=== PATIENT | female | born 1955 | race Two or more races ===

== ENCOUNTER 2023-09-25 19:49 | Inpatient (IN) | payer MEDICARE, BC ==
[~2023-09-25] VITALS: Ht 157.5 cm; Wt 45.4 kg
[2023-09-25 21:41] LABS: BASOPHILS % (AUTO) 0.6 % (0.0-2.0); EOSINOPHILS # (AUTO) 0.1 K/uL (0.0-0.7); EOSINOPHILS % (AUTO) 1.4 % (0.0-6.0); HEMATOCRIT 42 % (33-45); HEMOGLOBIN 13.9 g/dL (11.5-14.8); LYMPHOCYTES # (AUTO) 1.5 K/uL (0.8-4.8); LYMPHOCYTES % (AUTO) 17.6 % (20.0-44.0); MEAN CORPUSCULAR HEMOGLOBIN 28 PG (26.0-33.0); MEAN CORPUSCULAR HGB CONC 33 g/dl (31.0-36.0); MEAN CORPUSCULAR VOLUME 85 fL (82-100); MONOCYTES # (AUTO) 0.7 K/uL (0.1-1.30); MONOCYTES % (AUTO) 8.9 % (2.0-12.0); NEUTROPHILS % (AUTO) 71.5 % (43.0-81.0); PLATELET COUNT (AUTO) 227 K/uL (150-450); RED BLOOD CELL COUNT(AUTO) 4.93 MIL/uL (4.0-5.2); RED CELL DISTRIBUTION WIDTH 13.1 % (11.5-15.0); WHITE BLOOD COUNT (AUTO) 8.4 K/uL (4.3-11.0)
[2023-09-25 21:48] LABS: APPEARANCE,URINE CLEAR (CLEAR); BILIRUBIN,URINE NEGATIVE (NEGATIVE); BLOOD, URINE TRACE-INTA Ery/uL (NEGATIVE); COLOR,URINE YELLOW (YELLOW); KETONES,URINE 1+ mg/dL (NEGATIVE); LEUKOCYTE ESTERASE ,URINE NEGATIVE (NEGATIVE); NITRITE, URINE NEGATIVE (NEGATIVE); PROTEIN,URINE TRACE mg/dl (NEGATIVE); UGLUCOSE NEGATIVE (NEGATIVE)
[2023-09-25 21:56] LABS: CALCIUM, SERUM 9.3 mg/dL (8.5-10.1); CARBON DIOXIDE 31 mmol/L (21-32); CHLORIDE 101 mmol/L (98-107); CREATININE 0.7 mg/dL (0.6-1.3); GLUCOSE 109 mg/dL (74-106); POTASSIUM 3.1 mmol/L (3.5-5.1); SODIUM SERUM 139 mmol/L (136-145); UREA NITROGEN, BLOOD 8 mg/dL (7-18)
[2023-09-25 22:03] LABS: ALANINE AMINOTRANSFERASE 37 U/L (12-78); ALBUMIN 3.4 g/dL (3.4-5.0); ALCOHOL, BLOOD < 3 mg/dL (0-10); ALKALINE PHOSPHATASE 93 U/L (46-116); ASPARTATE AMINOTRANSFERASE 49 U/L (15-37); BILIRUBIN,DIRECT 0.2 mg/dL (0.0-0.2); TOTAL PROTEIN, SERUM 6.9 g/dL (6.4-8.2)
[2023-09-25 22:04] LABS: ACETAMINOPHEN 0 ug/ml (10-30); SALICYLATE < 0.2 mg/dL (2.8-20.0)
[2023-09-25 22:05] LABS: ADD URINE CULTURE NO; BACTERIA,URINE None seen /HPF (None Seen); MUCUS,URINE Few /LPF (None Seen); SQUAMOUS EPITHELIAL CELL,UR None Seen /HPF (None Seen); WBC,URINE NONE SEEN /HPF (0-3)
[2023-09-26 00:31] VITALS: O2SAT 99
[2023-09-26] MEDS ORDERED: LORAZEPAM INJ 2 MG/ML VIAL ONE (02:12)
[2023-09-26] MEDS ORDERED: LORAZEPAM INJ 2 MG/ML VIAL IV ONE (02:30)
[2023-09-26] MEDS ORDERED: ATOR20TA PO (03:54)
[2023-09-26] MEDS ORDERED: APIX5TAB PO (03:54)
[2023-09-26] MEDS ORDERED: LORA-259 PO (03:54)
[2023-09-26] MEDS ORDERED: METO25TA6 PO (03:54)
[2023-09-26] MEDS ORDERED: AMLO-212 PO (03:54)
[2023-09-26] MEDS ORDERED: BLOOD SUGAR DIAGNOSTIC 1 EACH STRIP IN ONE (04:30)
[2023-09-26] MEDS ORDERED: MAG HYDROX/AL HYDROX/SIMETH 30 ML UDC PO PRN (04:30)
[2023-09-26] MEDS ORDERED: ACETAMINOPHEN 325 MG TABLET PO PRN (04:30)
[2023-09-26] MEDS ORDERED: MAGNESIUM HYDROXIDE 30 ML UDC PO PRN (04:30)
[2023-09-26 05:48] VITALS: BP 132/69; TEMP 98.6
[2023-09-26 07:32] LABS: CHOLESTEROL 146 mg/dL (<200); HDL CHOLESTEROL 54 mg/dL (40-60); LDL 67 mg/dL (0-99); TRIGLYCERIDES 102 mg/dL (30-150)
[2023-09-26 08:00] VITALS: BP 118/74; TEMP 98.7; O2SAT 96
[2023-09-26] MEDS ORDERED: POTASSIUM CHLORIDE 20 MEQ TAB.PRT.SR PO ONE (14:30)
[2023-09-26] MEDS: clonazePAM 0.5 MG TABLET PO PRN (15:52)
[2023-09-26 16:00] VITALS: BP 144/96; TEMP 98.7; O2SAT 96
[2023-09-26] MEDS ORDERED: hydrOXYzine 10 MG TABLET PO PRN (16:00)
[2023-09-26] MEDS: risperiDONE 0.25 MG TABLET PO SCH (16:54)
[2023-09-26] MEDS: METOPROLOL TARTRATE 25 MG TABLET PO SCH (16:54)
[2023-09-26] MEDS: APIXABAN 5 MG TABLET PO SCH (16:55)
[2023-09-26 20:33] VITALS: BP 110/55; TEMP 98.2; O2SAT 98
[2023-09-26] MEDS: ATORVASTATIN 10 MG TABLET PO SCH (21:21)
[2023-09-26] MEDS: TEMAZEPAM 7.5 MG CAPSULE PO PRN (21:23)
[2023-09-27] MEDS: clonazePAM 0.5 MG TABLET PO PRN (02:59)
[2023-09-27 08:00] VITALS: BP 136/90; TEMP 97.4; O2SAT 97
[2023-09-27] MEDS: AMLODIPINE BESYLATE 5 MG TABLET PO SCH (08:46)
[2023-09-27] MEDS: risperiDONE 0.25 MG TABLET PO SCH ×2 (08:46→16:46)
[2023-09-27] MEDS: METOPROLOL TARTRATE 25 MG TABLET PO SCH ×2 (08:47→16:46)
[2023-09-27] MEDS: APIXABAN 5 MG TABLET PO SCH ×2 (08:49→16:47)
[2023-09-27] MEDS: ENSURE ENLIVE 237 ML LIQUID (VANILLA) PO SCH ×2 (12:04→16:46)
[2023-09-27 16:00] VITALS: BP 136/66; TEMP 98.4; O2SAT 99
[2023-09-27 20:00] VITALS: BP 114/83; TEMP 98.1; O2SAT 97
[2023-09-27] MEDS: TEMAZEPAM 7.5 MG CAPSULE PO PRN (21:10)
[2023-09-27] MEDS: ATORVASTATIN 10 MG TABLET PO SCH (22:08)
[2023-09-28] MEDS: clonazePAM 0.5 MG TABLET PO PRN (05:47)
[2023-09-28 08:00] VITALS: BP 129/96; TEMP 97.7; O2SAT 98
[2023-09-28] MEDS: Z GUARD REMEDY 4 OZ OINT TP SCH ×2 (09:00→18:12)
[2023-09-28] MEDS: METOPROLOL TARTRATE 25 MG TABLET PO SCH ×2 (09:16→17:52)
[2023-09-28] MEDS: risperiDONE 0.25 MG TABLET PO SCH ×2 (09:16→17:46)
[2023-09-28] MEDS: APIXABAN 5 MG TABLET PO SCH ×2 (09:16→17:59)
[2023-09-28] MEDS: AMLODIPINE BESYLATE 5 MG TABLET PO SCH (09:17)
[2023-09-28] MEDS: ENSURE ENLIVE 237 ML LIQUID (VANILLA) PO SCH ×3 (09:18→17:46)
[2023-09-28 16:00] VITALS: BP 129/81; TEMP 97.8; O2SAT 95
[2023-09-28 20:17] VITALS: BP 117/75; TEMP 98.1; O2SAT 98
[2023-09-28] MEDS: ATORVASTATIN 10 MG TABLET PO SCH (21:28)
[2023-09-28] MEDS: TEMAZEPAM 7.5 MG CAPSULE PO PRN (23:40)
[2023-09-29 08:00] VITALS: BP 120/93; TEMP 98.6; O2SAT 96
[2023-09-29] MEDS: ENSURE ENLIVE 237 ML LIQUID (VANILLA) PO SCH ×3 (08:00→17:00)
[2023-09-29] MEDS: risperiDONE 0.25 MG TABLET PO SCH ×2 (09:15→16:22)
[2023-09-29] MEDS: METOPROLOL TARTRATE 25 MG TABLET PO SCH ×2 (09:15→16:23)
[2023-09-29] MEDS: AMLODIPINE BESYLATE 5 MG TABLET PO SCH (09:16)
[2023-09-29] MEDS: APIXABAN 5 MG TABLET PO SCH ×2 (09:20→16:27)
[2023-09-29] MEDS: Z GUARD REMEDY 4 OZ OINT TP SCH ×2 (09:21→17:13)
[2023-09-29 16:00] VITALS: BP 128/91; TEMP 98.6; O2SAT 98
[2023-09-29] MEDS: ATORVASTATIN 10 MG TABLET PO SCH (21:37)
[2023-09-30] MEDS ORDERED: Z GUARD REMEDY 4 OZ OINT TP PRN
[2023-09-30] MEDS: TEMAZEPAM 7.5 MG CAPSULE PO PRN (00:23)
[2023-09-30 08:00] VITALS: BP 133/97; TEMP 97.6; O2SAT 94
[2023-09-30] MEDS: risperiDONE 0.25 MG TABLET PO SCH ×2 (08:13→16:45)
[2023-09-30] MEDS: ENSURE ENLIVE 237 ML LIQUID (VANILLA) PO SCH ×3 (08:13→16:46)
[2023-09-30] MEDS: METOPROLOL TARTRATE 25 MG TABLET PO SCH ×2 (08:14→16:46)
[2023-09-30] MEDS: APIXABAN 5 MG TABLET PO SCH ×2 (08:15→16:46)
[2023-09-30] MEDS: AMLODIPINE BESYLATE 5 MG TABLET PO SCH (08:16)
[2023-09-30 08:25] LABS: CREATININE 0.6 mg/dL (0.6-1.3)
[2023-09-30] MEDS: Z GUARD REMEDY 4 OZ OINT TP SCH ×2 (08:39→16:46)
[2023-09-30 16:00] VITALS: BP 139/78; TEMP 97.9; O2SAT 99
[2023-09-30 21:12] VITALS: BP 121/84; TEMP 97.8; O2SAT 99
[2023-09-30] MEDS: ATORVASTATIN 10 MG TABLET PO SCH (21:21)
[2023-10-01 08:00] VITALS: BP 149/76; TEMP 98.1; O2SAT 97
[2023-10-01] MEDS: Z GUARD REMEDY 4 OZ OINT TP SCH ×2 (10:30→16:41)
[2023-10-01] MEDS: METOPROLOL TARTRATE 25 MG TABLET PO SCH ×2 (10:33→16:39)
[2023-10-01] MEDS: risperiDONE 0.25 MG TABLET PO SCH ×2 (10:33→16:38)
[2023-10-01] MEDS: AMLODIPINE BESYLATE 5 MG TABLET PO SCH (10:34)
[2023-10-01] MEDS: ENSURE ENLIVE 237 ML LIQUID (VANILLA) PO SCH ×3 (10:35→16:38)
[2023-10-01] MEDS: APIXABAN 5 MG TABLET PO SCH ×2 (10:40→16:37)
[2023-10-01 16:00] VITALS: BP 132/88; TEMP 97.9; O2SAT 99
[2023-10-01 19:45] VITALS: BP 121/95; TEMP 97.9; O2SAT 97
[2023-10-01] MEDS: clonazePAM 0.5 MG TABLET PO PRN (21:10)
[2023-10-01] MEDS: ATORVASTATIN 10 MG TABLET PO SCH (21:10)
[2023-10-01] MEDS: TEMAZEPAM 7.5 MG CAPSULE PO PRN (22:16)
[2023-10-02 08:00] VITALS: BP 129/54; TEMP 98.7; O2SAT 99
[2023-10-02] MEDS: ENSURE ENLIVE 237 ML LIQUID (VANILLA) PO SCH ×3 (08:26→17:35)
[2023-10-02] MEDS: AMLODIPINE BESYLATE 5 MG TABLET PO SCH (08:26)
[2023-10-02] MEDS: risperiDONE 0.25 MG TABLET PO SCH ×2 (08:28→16:31)
[2023-10-02] MEDS: METOPROLOL TARTRATE 25 MG TABLET PO SCH ×2 (08:29→16:31)
[2023-10-02] MEDS: APIXABAN 5 MG TABLET PO SCH ×2 (08:34→16:35)
[2023-10-02] MEDS: Z GUARD REMEDY 4 OZ OINT TP SCH ×2 (08:35→16:36)
[2023-10-02 16:00] VITALS: BP 128/79; TEMP 98.7; O2SAT 98
[2023-10-02 21:22] VITALS: BP 121/73; TEMP 97.9; O2SAT 98
[2023-10-02] MEDS: ATORVASTATIN 10 MG TABLET PO SCH (21:29)
[2023-10-03] MEDS: clonazePAM 0.5 MG TABLET PO PRN (02:29)
[2023-10-03 08:00] VITALS: BP 115/85; TEMP 97.9; O2SAT 96
[2023-10-03] MEDS: METOPROLOL TARTRATE 25 MG TABLET PO SCH ×2 (09:00→17:43)
[2023-10-03] MEDS: AMLODIPINE BESYLATE 5 MG TABLET PO SCH (09:00)
[2023-10-03] MEDS: ENSURE ENLIVE 237 ML LIQUID (VANILLA) PO SCH ×3 (11:38→17:44)
[2023-10-03] MEDS: risperiDONE 0.25 MG TABLET PO SCH ×2 (11:41→17:43)
[2023-10-03] MEDS: APIXABAN 5 MG TABLET PO SCH ×2 (11:42→17:44)
[2023-10-03] MEDS: Z GUARD REMEDY 4 OZ OINT TP SCH ×2 (11:43→17:46)
[2023-10-03 16:00] VITALS: BP 134/78; TEMP 98.2; O2SAT 96
[2023-10-03 20:22] VITALS: BP 108/75; TEMP 98.1; O2SAT 98
[2023-10-03] MEDS: ATORVASTATIN 10 MG TABLET PO SCH (22:27)
[2023-10-03] MEDS: TEMAZEPAM 7.5 MG CAPSULE PO PRN (22:53)
[2023-10-04 08:00] VITALS: BP 135/96; TEMP 98.2; O2SAT 98
[2023-10-04] MEDS: APIXABAN 5 MG TABLET PO SCH ×2 (08:47→16:49)
[2023-10-04] MEDS: METOPROLOL TARTRATE 25 MG TABLET PO SCH ×2 (08:47→16:49)
[2023-10-04] MEDS: AMLODIPINE BESYLATE 5 MG TABLET PO SCH (08:48)
[2023-10-04] MEDS: risperiDONE 0.25 MG TABLET PO SCH ×2 (08:48→16:49)
[2023-10-04] MEDS: ENSURE ENLIVE 237 ML LIQUID (VANILLA) PO SCH ×3 (08:48→16:50)
[2023-10-04] MEDS: Z GUARD REMEDY 4 OZ OINT TP SCH ×2 (09:43→16:51)
[2023-10-04 16:00] VITALS: BP 102/70; TEMP 97.8; O2SAT 97
[2023-10-04 20:00] VITALS: BP 108/73; TEMP 98.3; O2SAT 98
[2023-10-04] MEDS: ATORVASTATIN 10 MG TABLET PO SCH (21:46)
[2023-10-05 08:00] VITALS: BP 130/82; TEMP 98.6; O2SAT 97
[2023-10-05] MEDS: AMLODIPINE BESYLATE 5 MG TABLET PO SCH (08:53)
[2023-10-05] MEDS: METOPROLOL TARTRATE 25 MG TABLET PO SCH ×2 (08:53→16:16)
[2023-10-05] MEDS: risperiDONE 0.25 MG TABLET PO SCH ×2 (08:53→16:15)
[2023-10-05] MEDS: APIXABAN 5 MG TABLET PO SCH ×2 (08:54→16:15)
[2023-10-05] MEDS: ENSURE ENLIVE 237 ML LIQUID (VANILLA) PO SCH ×3 (08:55→17:41)
[2023-10-05] MEDS: Z GUARD REMEDY 4 OZ OINT TP SCH ×2 (08:56→16:19)
[2023-10-05 16:00] VITALS: BP 146/96; TEMP 97.6; O2SAT 99
[2023-10-05 20:00] VITALS: BP 129/93; TEMP 98.1; O2SAT 98
[2023-10-05] MEDS: ATORVASTATIN 10 MG TABLET PO SCH (21:34)
[2023-10-05] MEDS: TEMAZEPAM 7.5 MG CAPSULE PO PRN (21:35)
[2023-10-06 08:00] VITALS: BP 129/83; TEMP 97.9; O2SAT 100
[2023-10-06] MEDS: ENSURE ENLIVE 237 ML LIQUID (VANILLA) PO SCH ×3 (08:17→17:38)
[2023-10-06] MEDS: METOPROLOL TARTRATE 25 MG TABLET PO SCH ×2 (08:30→17:38)
[2023-10-06] MEDS: risperiDONE 0.25 MG TABLET PO SCH ×2 (08:31→17:37)
[2023-10-06] MEDS: APIXABAN 5 MG TABLET PO SCH ×2 (08:31→17:39)
[2023-10-06] MEDS: Z GUARD REMEDY 4 OZ OINT TP SCH ×2 (08:32→17:39)
[2023-10-06] MEDS: AMLODIPINE BESYLATE 5 MG TABLET PO SCH (08:32)
[2023-10-06 16:00] VITALS: BP 124/74; TEMP 97.9; O2SAT 96
[2023-10-06 20:00] VITALS: BP 103/71; TEMP 98.2; O2SAT 98
[2023-10-06] MEDS: ATORVASTATIN 10 MG TABLET PO SCH (21:44)
[2023-10-07 08:00] VITALS: BP_SYST 136; BP_SYST 163; BP_DIAS 99; TEMP 97.9; O2SAT 97
[2023-10-07] MEDS: ENSURE ENLIVE 237 ML LIQUID (VANILLA) PO SCH ×3 (08:30→17:17)
[2023-10-07] MEDS: METOPROLOL TARTRATE 25 MG TABLET PO SCH ×2 (08:31→17:00)
[2023-10-07] MEDS: AMLODIPINE BESYLATE 5 MG TABLET PO SCH (08:31)
[2023-10-07] MEDS: APIXABAN 5 MG TABLET PO SCH ×2 (08:32→17:16)
[2023-10-07] MEDS: risperiDONE 1 MG TABLET PO SCH ×2 (09:06→17:16)
[2023-10-07] MEDS: Z GUARD REMEDY 4 OZ OINT TP SCH ×2 (09:07→17:20)
[2023-10-07 16:00] VITALS: BP 102/73; TEMP 97.8; O2SAT 100
[2023-10-07 20:55] VITALS: BP 114/61; TEMP 98.2; O2SAT 100
[2023-10-07] MEDS: ATORVASTATIN 10 MG TABLET PO SCH (21:45)
[2023-10-07] MEDS: TEMAZEPAM 7.5 MG CAPSULE PO PRN (21:50)
[2023-10-08 08:00] VITALS: BP 136/90; TEMP 97.7; O2SAT 99
[2023-10-08] MEDS: ENSURE ENLIVE 237 ML LIQUID (VANILLA) PO SCH ×2 (08:03→11:03)
[2023-10-08] MEDS: METOPROLOL TARTRATE 25 MG TABLET PO SCH (09:15)
[2023-10-08] MEDS: risperiDONE 1 MG TABLET PO SCH (09:15)
[2023-10-08] MEDS: APIXABAN 5 MG TABLET PO SCH (09:15)
[2023-10-08 09:17] VITALS: BP 136/90
[2023-10-08] MEDS: AMLODIPINE BESYLATE 5 MG TABLET PO SCH (09:17)
[2023-10-08] MEDS: Z GUARD REMEDY 4 OZ OINT TP SCH (09:45)
== END 2023-10-08 15:30 | DRG 885 ==
LOC: ER 19:51 → GPS 09-26 03:21
PROVIDERS: ADMIT Psychiatry & Neurology Psychiatry
DX: F29 Unspecified psychosis not due to a substance or known physiological condition (principal); D68.69 Other thrombophilia; I48.20 Chronic atrial fibrillation, unspecified; E44.0 Moderate protein-calorie malnutrition; Z68.1 Body mass index [BMI] 19.9 or less, adult; F41.9 Anxiety disorder, unspecified; I48.91 Unspecified atrial fibrillation; E78.5 Hyperlipidemia, unspecified; E87.6 Hypokalemia; I10 Essential (primary) hypertension; Z20.822 Contact with and (suspected) exposure to COVID-19; Z73.6 Limitation of activities due to disability; F32.9 Major depressive disorder, single episode, unspecified; R41.9 Unspecified symptoms and signs involving cognitive functions and awareness; Z79.01 Long term (current) use of anticoagulants; Z79.899 Other long term (current) drug therapy; Z66 Do not resuscitate
CPT/HCPCS: 36415; 70450-TC; 71045-TC; 80048-TC; 80061-TC; 80076-TC; 81001; 82565-TC; 82962-TC; 84484-TC; 85025-TC; 97110-TC; 97116-TC; 97530-TC; G0480; J2060; Q0177